=== PATIENT | female | born 1965 | race Hispanic/Latino ===

== ENCOUNTER 2024-05-27 12:20 | Emergency (ER) | payer SELFPAY ==
[2024-05-27] MEDS ORDERED: traMADol HCl 50 MG TAB ONE (13:34)
== END 2024-05-27 14:26 | disposition home or self-care (01) ==
LOC: ERS 12:20
DX: S52.571A Other intraarticular fracture of lower end of right radius, initial encounter for closed fracture (principal); W01.10XA Fall on same level from slipping, tripping and stumbling with subsequent striking against unspecified object, initial encounter; Y93.17 Activity, water skiing and wake boarding
CPT/HCPCS: 29125; 99283